=== PATIENT | female | born 1990 | race American Indian/Alaskan Native ===

== ENCOUNTER 2019-01-10 14:07 | Emergency (ER) | payer OTHER ==
[2019-01-10 14:32] VITALS: O2SAT 98
[2019-01-10 14:58] LABS: SQUAMOUS EPITHIAL 5 /hpf (0-5); URINE BACTERIA RARE (<OCC); URINE BILIRUBIN NEGATIVE (NEGATIVE); URINE BLOOD NEGATIVE (NEGATIVE); URINE CLARITY Clear (Clear); URINE COLOR Yellow (YELLOW); URINE GLUCOSE (UA) 2+ mg/dL (Normal); URINE LEUKOCYTE ESTERASE NEG Leu/uL (Negative); URINE PROTEIN NEGATIVE (NEGATIVE); URINE UROBILINOGEN NORMAL mg/dL (0.2-1.0)
[2019-01-10 15:48] LABS: BASO % 0.6 % (0.0-2.0); EOS # 0.1 K/uL (0.0-0.7); EOS % 1.5 % (0.0-4.0); HEMOGLOBIN 10.8 g/dL (11.0-16.0); LYMPH % 26.2 % (20.0-40.0); MEAN CELL VOLUME 82.2 fL (81.0-99.0); MEAN CORPUSCULAR HEMOGLOBIN 26.6 pg (27.0-31.0); MEAN CORPUSCULAR HGB CONC 32.3 g/dL (33.0-37.0); MONO # 0.8 K/uL (0.0-0.8); MONO % 10.8 % (0.0-10.0); NEUT # 4.6 K/uL (1.8-7.0); NEUT % 60.9 % (50.0-75.0); NRBC % 0.1 % (0.0-2.0); RBC 4.05 Mil/uL (3.80-5.20); RED CELL DISTRIBUTION WIDTH 16.5 % (11.5-14.5); WHITE BLOOD COUNT 7.6 K/uL (4.8-10.8)
[2019-01-10 16:02] LABS: ALB/GLOB RATIO 1.4 (1.0-2.1); ALBUMIN 4.1 g/dL (3.5-5.0); AST/SGOT 32 U/L (14-36); BLOOD UREA NITROGEN 11 mg/dL (7-17); CALCIUM 8.8 mg/dl (8.6-10.4); GFR NON-AFRICAN AMERICAN > 60; LIPASE 136 U/L (23-300)
[2019-01-10 16:12] LABS: ALT/SGPT < 6 U/L (9-52)
[2019-01-10 16:47] VITALS: BP 134/78; PULSE 78; RESP 17; TEMP 98.2
--- NOTE | 2019-01-10 17:27 | C.PDOC ---
History Of Present Illness 28 y/o female presents to ED complaining of intermittent suprapubic pain x1 week, sharp in nature. Patient denies vomiting, dysuria, hematuria, vaginal bleeding or discharge. She states she has not taken any pain medications. Chief Complaint (Nursing): Abdominal Pain History Per: Patient History/Exam Limitations: no limitations Onset/Duration Of Symptoms: Days Current Symptoms Are (Timing): Still Present Past Medical History Reviewed: Historical Data, Nursing Documentation, Vital Signs Vital Signs: Last Vital Signs Temp 98.2 F 01/10/19 16:46 Pulse 78 01/10/19 16:46 Resp 17 01/10/19 16:46 BP 134/78 01/10/19 16:46 Pulse Ox 98 01/10/19 16:46 Family History: States: No Known Family Hx - Social History Hx Alcohol Use: No Hx Substance Use: No - Immunization History Hx Tetanus Toxoid Vaccination: No Hx Influenza Vaccination: No Hx Pneumococcal Vaccination: No Review Of Systems Except As Marked, All Systems Reviewed And Found Negative. Constitutional: Negative for: Fever, Chills Gastrointestinal: Positive for: Abdominal Pain (suprapubic). Negative for: Nausea, Vomiting, Diarrhea Genitourinary: Negative for: Dysuria, Hematuria, Vaginal Discharge, Vaginal Bleeding Musculoskeletal: Negative for: Back Pain Physical Exam - Physical Exam Appears: Non-toxic, No Acute Distress Skin: Warm, Dry Head: Atraumatic, Normacephalic Eye(s): bilateral: Normal Inspection Oral Mucosa: Moist Neck: Supple Cardiovascular: Rhythm Regular, No Murmur Respiratory: Normal Breath Sounds, No Rales, No Rhonchi, No Wheezing Gastrointestinal/Abdominal: Soft, No Tenderness, No Guarding, No Rebound Extremity: Bilateral: Atraumatic, Normal Color And Temperature, Normal ROM Neurological/Psych: Oriented x3, Normal Speech ED Course And Treatment - Laboratory Results Result Diagrams: 01/10/19 15:41 01/10/19 15:41 Lab Results: Total Bilirubin 0.3 mg/dL (0.2-1.3) 01/10/19 15:41 AST 32 U/L (14-36) 01/10/19 15:41 ALT < 6 U/L (9-52) L 01/10/19 15:41 Alkaline Phosphatase 77 U/L (38-126) 01/10/19 15:41 Total Protein 6.9 g/dL (6.3-8.3) 01/10/19 15:41 Albumin 4.1 g/dL (3.5-5.0) 01/10/19 15:41 Globulin 2.8 gm/dL (2.2-3.9) 01/10/19 15:41 Albumin/Globulin Ratio 1.4 (1.0-2.1) 01/10/19 15:41 Lipase 136 U/L (23-300) 01/10/19 15:41 Urine Color Yellow (YELLOW) 01/10/19 14:38 Urine Clarity Clear (Clear) 01/10/19 14:38 Urine pH 5.0 (5.0-8.0) 01/10/19 14:38 Ur Specific [place] 1.023 (1.003-1.030) 01/10/19 14:38 Urine Protein Negative mg/dL (NEGATIVE) 01/10/19 14:38 Urine Glucose (UA) 2+ mg/dL (Normal) H 01/10/19 14:38 Urine Ketones Negative mg/dL (NEGATIVE) 01/10/19 14:38 Urine Blood Negative (NEGATIVE) 01/10/19 14:38 Urine Nitrate Negative (NEGATIVE) 01/10/19 14:38 Urine Bilirubin Negative (NEGATIVE) 01/10/19 14:38 Urine Urobilinogen Normal mg/dL (0.2-1.0) 01/10/19 14:38 Ur Leukocyte Esterase Neg Stevan/uL (Negative) 01/10/19 14:38 Urine WBC (Auto) 3 /hpf (0-5) 01/10/19 14:38 Urine RBC (Auto) 1 /hpf (0-3) 01/10/19 14:38 Ur Squamous Epith Cells 5 /hpf (0-5) 01/10/19 14:38 Urine Bacteria Rare (<OCC) 01/10/19 14:38 O2 Sat by Pulse Oximetry: 98 (RA) Pulse Ox Interpretation: Normal Medical Decision Making Medical Decision Making: Plan: --Labs --UA --Toradol Disposition - Disposition Referrals: [facility] [Outside] [facility] [Outside] [facility] [Outside] Disposition: HOME/ ROUTINE Disposition Time: 16:00 Condition: GOOD Additional Instructions: ANGELITA RUCKER, thank you for letting us take care of you today. The emergency medical care you received today was directed at your acute symptoms. If you were prescribed any medication, please fill it and take as directed. It may take several days for your symptoms to resolve. Return to the Emergency Department if your symptoms worsen, do not improve, or if you have any other problems. Please contact your doctor or call one of the physicians/clinics you have been referred to that are listed on the Patient Visit Information form that is included in your discharge packet. Bring any paperwork you were given at discharge with you along with any medications you are taking to your follow up visit. Our treatment cannot replace ongoing medical care by a primary care provider outside of the emergency department. Thank you for allowing the [facility] team to be part of your care today. Follow with your primary care doctor this week. Information about [facility] follow up has been provided for you. Prescriptions: Ibuprofen [Motrin] 600 mg PO Q6 PRN #20 tab PRN Reason: Pain, Moderate (4-7) Instructions: Acute Abdomen (Belly Pain), Adult (DC) Forms: [employer] (Frisian) - Clinical Impression Clinical Impression: Abdominal wall pain - Scribe Statement The provider has reviewed the documentation as recorded by the Dustinibmracella Bryant Provider Attestation: All medical record entries made by the Scribe were at my direction and pers onally dictated by me. I have reviewed the chart and agree that the record accurately reflects my personal performance of the history, physical exam, medical decision making, and the department course for this patient. I have also personally directed, reviewed, and agree with the discharge instructions and disposition.
== END 2019-01-10 16:45 | disposition home or self-care (01) ==
LOC: C.ER 14:07
DX: R10.9 Unspecified abdominal pain (principal)
CPT/HCPCS: 80053; 81001; 83690; 85025; 96374; 99283; J1885